=== PATIENT | male | born 1950 | race Caucasian/White ===

== ENCOUNTER → 2020-11-27 | Outpatient (CLI) | payer MEDICARE, OTHER ==
[~2020-11-27] MED LIST: AMIODARONE HCL200 MG PO; ASPIRIN CHEWABL81 MG PO; BETAPACE80 MG PO; ELIQUIS5 MG PO; K-DUR TAB 20 M20 MEQ PO; LEVAQUIN500 MG PO; METOPROLOL TART25 MG PO; MIRALAX17 GM PO; NITROGLYCERIN0.4 MG SL; NORCO 5-325 TA1 EACH PO; ONDANSETRON ODT4 MG PO; PROTONIX40 MG PO; QUINAPRIL-HCTZ1 EAC1 PO; SIROLIMUS2 MG PO; VIBRAMYCIN100 MG PO; VITAMIN D32000 UNI1 PO
== END ==
LOC: HEART 5 09:06
DX: I48.91 Unspecified atrial fibrillation (principal); Z79.899 Other long term (current) drug therapy; R94.2 Abnormal results of pulmonary function studies; F17.210 Nicotine dependence, cigarettes, uncomplicated
CPT/HCPCS: 94060; 94729

== ENCOUNTER → 2020-12-12 | Outpatient (CLI) | payer MEDICARE, OTHER | LOC: KOH-I 13:34 | DX: R05 Cough (principal); J90 Pleural effusion, not elsewhere classified; Q89.8 Other specified congenital malformations | CPT/HCPCS: 71046 ==

== ENCOUNTER → 2021-08-22 | Outpatient (CLI) | payer MEDICARE, OTHER ==
[2021-08-22 11:36] LABS: HEMOGLOBIN 9.2 gm/dl (14.0-17.5); RED BLOOD COUNT 3.21 M/UL (4.20-5.50); WHITE BLOOD COUNT 4.7 K/UL (4.5-11.0)
[2021-08-22 11:53] LABS: BUN/CREATININE RATIO 18 (0-10)
== END ==
LOC: LAB 10:55
PROVIDERS: Nurse Practitioner Family
DX: R07.9 Chest pain, unspecified (principal); R06.02 Shortness of breath; R91.8 Other nonspecific abnormal finding of lung field
CPT/HCPCS: 36415; 71046; 80048; 83880; 85025

== ENCOUNTER → 2021-09-01 | Outpatient (CLI) | payer MEDICARE, OTHER ==
[~2021-09-01] MED LIST changes: +ELIQUIS 5 MG TAB5 MG PO; +HYDROCODON-ACE1 EAC4 PO
== END ==
LOC: KOH-I 15:29
DX: R07.9 Chest pain, unspecified (principal); R91.8 Other nonspecific abnormal finding of lung field
CPT/HCPCS: 71046

== ENCOUNTER 2021-09-05 04:02 | Emergency (ER) | payer MEDICARE, OTHER ==
[~2021-09-05 04:02] MED LIST changes: -ELIQUIS 5 MG TAB5 MG PO; -HYDROCODON-ACE1 EAC4 PO
[2021-09-05 05:09] LABS: HEMOGLOBIN 8.5 gm/dl (14.0-17.5); RED BLOOD COUNT 3.16 M/UL (4.20-5.50); WHITE BLOOD COUNT 8.5 K/UL (4.5-11.0)
[2021-09-05 05:30] LABS: BUN/CREATININE RATIO 16 (0-10)
[2021-09-05] MEDS ORDERED: ELIQUIS 5 MG TAB5 MG PO (10:27)
[2021-09-05] MEDS ORDERED: HYDROCODON-ACE1 EAC4 PO (11:04)
== END 2021-09-05 11:06 | disposition home or self-care (01) ==
LOC: ER1 04:02
PROVIDERS: Emergency Medicine
DX: I26.99 Other pulmonary embolism without acute cor pulmonale (principal); Z20.822 Contact with and (suspected) exposure to COVID-19
CPT/HCPCS: 71045; 80053; 82550; 82553; 83874; 83880; 84484; 85025; 85610; 85730; 93005; 96374; 96375; 99285; J1644; J2405; Q9967; U0002